=== PATIENT | female | born 1970 | race African-American/Black ===

== ENCOUNTER 2017-05-20 09:13 | Emergency (ER) | payer OTHER ==
[2017-05-20 10:45] LABS: BASOPHILS 0.3 %; BASOPHILS ABSOLUTE 0.03 10/3/uL (0.0-0.16); EOSINOPHILS 2.2 %; ER CBC TAT 0 Hrs 09 Mins; HEMATOCRIT 40.2 % (36.0-48.0); IMMATURE GRANULOCYTES 0.9 %; IMMATURE GRANULOCYTES ABSOLUTE 0.08 10/3/uL (0.0-0.11); LYMPHOCYTES 46.1 %; LYMPHOCYTES ABSOLUTE 4.23 10/3/uL (0.67-4.30); MEAN CORPUS HGB CONC 32.3 g/dL (32.0-36.0); MEAN CORPUSCULAR HEMOGLOB 31.9 pg (26.0-34.0); MEAN CORPUSCULAR VOLUME 98.8 fL (80-100); MEAN PLATELET VOLUME 10.9 fL (9.2-13.0); MONOCYTES 8.7 %; NEUTROPHILS 41.8 %; NEUTROPHILS ABSOLUTE 3.84 10/3/uL (2.02-8.40); PLATELET COUNT 184 10/3/uL (150-400); RBC DISTRIBUTION WIDTH 13.3 % (12.0-16.0); RED CELL COUNT 4.07 10/6/uL (4.0-5.6); WHITE BLOOD CELLS 9.2 10/3/uL (4.5-10.5)
[2017-05-20 10:46] LABS: MANUAL DIFF NO %
[2017-05-20 11:01] LABS: A/G RATIO 0.6 (0.7-1.9); ALBUMIN 3.2 G/DL (3.5-5.0); ALKALINE PHOSPHATASE 72 U/L (45-117); BUN (BLOOD UREA NITROGEN) 21 MG/DL (6-23); CALCIUM, SERUM 8.6 MG/DL (8.5-10.4); CHLORIDE, SERUM 107 MMOL/L (96-112); CO2 (CARBON DIOXIDE) 28 MMOL/L (24-34); CREATININE 1.18 MG/DL (0.55-1.02); GFR AFRICAN AMERICAN 63 ML/MIN (>=60); GFR NON AFRICAN AMERICAN 54 ML/MIN (>=60); GLOBULIN 5.2 G/DL (2.5-4.1); GLUCOSE, SERUM 91 MG/DL (60-99); POTASSIUM, SERUM 4.1 MMOL/L (3.5-5.3); SGOT(AST) 11 U/L (5-40); SGPT(ALT) 17 U/L (5-65); SODIUM, SERUM 140 MMOL/L (135-148); TOTAL BILIRUBIN 0.3 MG/DL (0-1.2); TOTAL PROTEIN 8.4 G/DL (6.0-8.5)
[2017-05-20 12:08] LABS: INFLUENZA A SCREEN NEGATIVE (NEGATIVE); INFLUENZA B SCREEN NEGATIVE (NEGATIVE)
== END 2017-05-20 13:06 | disposition home or self-care (01) ==
LOC: ER 09:13
PROVIDERS: Emergency Medicine
DX: J20.9 Acute bronchitis, unspecified (principal); B20 Human immunodeficiency virus [HIV] disease; F17.200 Nicotine dependence, unspecified, uncomplicated; K21.9 Gastro-esophageal reflux disease without esophagitis; Z87.442 Personal history of urinary calculi
CPT/HCPCS: 71010; 80053; 85025; 87040; 87804; 93005; 99284